=== PATIENT | female | born 2005 | race Caucasian/White ===

== ENCOUNTER 2025-08-22 10:13 | Outpatient (REF) | payer OTHER, SELFPAY | END 2025-08-22 10:14 | disposition home or self-care (01) | LOC: HO.LNP 10:13 | PROVIDERS: PCP Pediatrics; Visit Provider Nurse Practitioner Family | DX: K21.9 Gastro-esophageal reflux disease without esophagitis (principal); R09.A2 Foreign body sensation, throat; K59.00 Constipation, unspecified | CPT/HCPCS: 83013; 99202 ==

== ENCOUNTER 2025-08-22 10:13 | Outpatient (AMB) | payer OTHER, SELFPAY ==
--- NOTE | 2025-08-22 10:17 | MHC.OFFVIS ---
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 Intake Note: New pt for initial eval of chronic N+V. CC: C.O. chronic N+V for the last few years with new development within the last 2 weeks. Pt states that her sx have suddenly become worse and are now affecting her day to day life + work schedule. Pt also reports fatigue, lower abd pain, dysphagia / foreign body sensation, and irregular BMs with intermittent hematochezia. 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 Patient was sent to us by her clinical writer. Patient reports ongoing epigastric discomfort and nausea. Nausea can be exacerbated by smell, weather change like from hot to cold. Patient also reports history of fasting for long periods of time. Currently patient reports that her diet has not been great. She usually gets something from cafeteria in the morning like petra tots (fried potatoes), at home she usually does not cook for herself and eats fast food. Patient reports food getting stuck in the lower esophagus occasionally when she eats. Currently she is not taking any PPI or H2 urvashi. No family history of gastrointestinal disorders. Patient admits to have an anxiety and she knows that when she has episodes of and anxiety under stress she her symptoms exacerbate. Patient is seeing therapist for that. Patient reports no issues with bowel movements usually. However she admits that occasionally she might be constipated and sometimes she might have looser stools. Patient reports dyspepsia with dysphagia without odynophagia. Denies melena, hematochezia, unintentional weight loss or ribbon like stools. However patient reports that sometimes when she is constipated she will have blood with wiping [facility] Medical History (Updated 08/22/25 @ 10:30 by Aung Pacheco [facility]) History of chlamydia Adjustment disorder with depressed mood Social History Alcohol intake: unknown Patient Tobacco Use Status: Former Tobacco user Substance Use Type: Marijuana Review of Systems Const Denies weight gain and Denies weight loss ENT Reports no additional complaints, Reports dysphagia and Denies odynophagia Card Reports no additional complaints Resp Reports no additional complaints GI Reports abdominal pain, Denies belching, Denies melena, Denies bloating, Denies change in bowel habits, Reports constipation, Reports dysphagia, Denies excessive flatus, Reports dyspepsia, Reports heartburn, Denies diarrhea, Reports loose stools, Denies nausea, Denies odynophagia and Denies vomiting Reports no additional complaints Musc Reports no additional complaints Neuro Reports no additional complaints Psych Reports no additional complaints Endo Reports no additional complaints Physical Exam Vital Signs: BMI result Body Mass Index 23.3 Const General: healthy appearing, no acute distress and well developed Nutritional Appearance: well nourished Orientation/consciousness: patient oriented x3 Resp Effort & Inspection: normal respiratory effort, able to speak in complete sentences, no tracheal deviation and symmetric chest movement Auscultation: clear to auscultation bilaterally Cardio Rate: regular rate GI Inspection: Yes normal to inspection and No distended Palpation (GI): Soft to palpation, not firm, nontender and No hepatosplenomegaly present Auscultation: normal bowel sounds General: Yes no CVA tenderness Back/Spine/Pelvis Back: no CVA tenderness Skin General skin exam: elasticity normal, turgor normal and dry skin Neuro General: patient oriented x3 Psych Appearance: grossly normal Mental Status: mental status grossly normal Assessment & Plan Assessment & Plan (1) Postprandial epigastric pain: Code(s): R10.13 - Epigastric pain (2) GERD (gastroesophageal reflux disease): Code(s): K21.9 - Gastro-esophageal reflux disease without esophagitis Qualifiers: Esophagitis presence: esophagitis presence not specified Qualified Code(s): K21.9 - Gastro-esophageal reflux disease without esophagitis (3) Globus sensation: Code(s): R09.A2 - Foreign body sensation, throat Plan Will check for H pylori and treat empirically if positive. Will check lipase, vitamin-D, transglutaminase, thyroid study, vitamin B12 and folate. Patient will be sent for upper GI with barium swallow. Reports globus sensation in the lower part of the esophagus. Will rule out reflux, esophageal narrowing, abnormality in peristalsis. I will start him on low-dose PPI. She will start taking omeprazole daily. Patient is to call us if this will not be helpful. Discussed with patient avoiding dietary triggers. Trying to eat better to feel better. Avoid fast food meals. If patient continues to feel same after dietary changes and treatment we will send her for upper endoscopy. Follow-up in 3 months, sooner on as needed basis. Patient is agreeable to this plan and verbalizes understanding of instructions. She was given the opportunity to ask questions and all questions answered. Thank you for allowing me to participate in her care Orders: Orders H Pylori Breath Test Today K21.9 - Gastro-esophageal reflux disease without esophagitis Lipase Today R10.9 - Unspecified abdominal pain Vitamin D 25-OH (D2 and D3) Today E55.9 - Vitamin D deficiency, unspecified Transglutaminase IgA Today R10.9 - Unspecified abdominal pain TSH reflex Free T4 Today K59.00 - Constipation, unspecified Vitamin B12 and Folate Today R19.7 - Diarrhea, unspecified FL upper GI w air w Ba Swallow Today K21.9 - Gastro-esophageal reflux disease without esophagitis Medications: New omeprazole 20 mg PO DAILY 30 caps 3RF K21.9 - Gastro-esophageal reflux disease without esophagitis Coding Level of Care Code New Pt Level 4 (89493) Diagnoses Postprandial epigastric pain R10.13 Gastroesophageal reflux disease, unspecified whether esophagitis present K21.9 Esophagitis presence: esophagitis presence not specified Globus sensation R09.A2 Time Spent (min) 45 Comment 35 minutes and patient and additional 10 minutes spent reviewing her records
[2025-08-22 10:25] VITALS: BP 136/70; PULSE 90; O2SAT 99; BMI 23.3
--- OUTSIDE RECORDS SUMMARY | 2025-08-22 11:38 | XMS_ITS | Encounter Summary ---
Author Organization [facility] Address [address] [place] [address] Phone Care Team Providers Care Rag Cutting Machine Operator Name Role Phone Layne Joe MD Primary Care Provider + [phone] Reason for Visit * Reason Comments Med Change Request Encounter Details Date Type Department Care Team ([facility] Contact Info) Description 06/09/2022 Refill [facility] [place] [address] [place] [address] Dominique Agarwal DO [address] [place] [address] Other iron deficiency anemias Social History Tobacco Use Types Packs/Day Years Used Date Smoking Tobacco: Never Smokeless Tobacco: Never Alcohol Use Standard Drinks/Week Comments Never 0 (1 standard drink = 0.6 oz pur e alcohol) Hunger/Food Answer Date Recorded In the last 12 months, did y ou or your family ever eat less than you felt you should because there wasn't enough money for food? No 02/27/2021 Stable Housing Answer Date Recorded Are you worried that in the next 2 months you may not have stable housing? No 02/27/2021 Transportation Concerns Answer Date Rec orded In the last 12 months, have you or your family ever had to go without healthcare because you didn't have a way to get there? No 02/27/2021 Hazards in Home Answer Date Recorded Think about the place you li ve. Do you have problems with any of the following? Pests (mice or roaches), mold, no/not working smoke detectors, water leaks, no window guards. No 2020 Financing Utilities Answer Date Recorde d In the last 12 months, has t he [employer], gas, oil, or water [employer] threatened to shut off your services in your home? No 02/27/2021 Safety at Home Answer Date Recorded Are you or your family worried about feeling saf e in your home? No 02/27/2021 Outside Support Answer Date Recorded Do you feel that you need mo re support from other people or programs to help you care for yourself or your family? No 02/27/2021 Understanding Health Concerns Answer Da te Recorded Do you need help understandi ng your or your child's healthcare needs (diagnosis, medications, plan, etc.)? No 02/27/2021 Financing Health Concerns Answer Date R ecorded In the last 12 months, was t here a time when your child needed to see a doctor or get medications or supplies but could not because of cost? No 02/27/2021 Missing School or Work Answer Date [place] r[place] Did you or your child miss s chool or work because of a health problem that could have been avoided? No 02/27/2021 Comments No Sex and Gender Information Value Date Recorded Sex Assigned at Female 01/22/2020 10:13 AM EST Legal Sex Female 5:00 PM EDT Gender Identity Female 01/22/2020 10:13 AM EST Sexual Orientation Bisexual 02/27/2021 1 :35 PM EDT documented as of this encounter Miscellaneous Notes * Telephone Encounter - Lorraine Simmons NP - 06/09/2022 12:58 PM EDT Requesting med refill of ferrous sulfate; pt w/ hx of heavy menses on OCP; overdue for follow up labs need to avoid possible Iron overload; Labs placed and pt to follow up post lab to determine if dose needs to be lowered or reduced. * Telephone Encounter - Linda Ly LPN - 06/09/2022 11:24 AM EDT Faxed refill request / has pending PE documented in this encounter Plan of Treatment Not on file documented as of this encounter Visit Diagnoses Diagnosis Other iron deficiency anemias documented in this encounter Care Teams Rag Cutting Machine Operator Relationship Specialty Start Date End Date Layne Joe MD [address] [place] [id number] PCP - General Pediatrics 07/19/23 documented as of this encounter
--- OUTSIDE RECORDS SUMMARY | 2025-08-22 11:38 | XMS_ITS | Encounter Summary ---
Author Organization [facility] Address [address] [place] [address] Phone Care Team Providers Care Personal Counselor Name Role Phone Layne Joe MD Primary Care Provider [phone] Encounter Details Date Type Department Care Team ([facility] Contact Info) Description 08/19/2025 Results Follow-Up [facility] [place] [address] [place] [address] Pretty Diggs NP [address] [place] [address] Social History Tobacco Use Types Packs/Day Years Used Date Smoking Tobacco: Never Smokeless Tobacco: Never Alcohol Use Standard Drinks/Week Comments Never 0 (1 standard drink = 0.6 oz pur e alcohol) Hunger/Food Answer Date Recorded In the last 12 months, did y ou or your family ever eat less than you felt you should because there wasn't enough money for food? No 06/22/2024 Stable Housing Answer Date Recorded Are you worried that in the next 2 months you may not have stable housing? No 06/22/2024 Transportation Concerns Answer Date Rec orded In the last 12 months, have you or your family ever had to go without healthcare because you didn't have a way to get there? No 06/22/2024 Hazards in Home Answer Date Recorded Think about the place you li ve. Do you have problems with any of the following? Pests (mice or roaches), mold, no/not working smoke detectors, water leaks, no window guards. No 2023 Financing Utilities Answer Date Recorde d In the last 12 months, has t he electric, gas, oil, or water company threatened to shut off your services in your home? No 06/22/2024 Safety at Home Answer Date Recorded Are you or your family worried about feeling saf e in your home? No 06/22/2024 Outside Support Answer Date Recorded Do you feel that you need mo re support from other people or programs to help you care for yourself or your family? No 06/22/2024 Understanding Health Concerns Answer Da te Recorded Do you need help understandi ng your or your child's healthcare needs (diagnosis, medications, plan, etc.)? No 06/22/2024 Financing Health Concerns Answer Date R ecorded In the last 12 months, was t here a time when your child needed to see a doctor or get medications or supplies but could not because of cost? No 06/22/2024 Missing School or Work Answer Date [place] rded Did you or your child miss s chool or work because of a health problem that could have been avoided? No 06/22/2024 Child Education Answer Date Recorded Do you have concerns about y our/your child's learning or behavior in school, preschool, or daycare? No 06/22/2024 Comments No Sex and Gender Information Value Date Recorded Sex Assigned at Female 01/22/2020 10:13 AM EST Legal Sex Female 5:00 PM EDT Gender Identity Female 01/22/2020 10:13 AM EST Sexual Orientation Bisexual 02/27/2021 1: 35 PM EDT documented as of this encounter Plan of Treatment Not on file documented as of this encounter Visit Diagnoses Not on filedocumented in this encounter Care Teams Personal Counselor Relationship Specialty Start Date End Date Layne Joe MD [address] [place] [id number] PCP - General Pediatrics 07/19/23 documented as of this encounter
--- OUTSIDE RECORDS SUMMARY | 2025-08-22 11:38 | XMS_ITS | Encounter Summary ---
Author Organization [facility] Address [address] [place] [address] Phone Care Team Providers Care Single Spindle Screw Machine Operator Name Role Phone Layne Joe MD Primary Care Provider Encounter Details Date Type Department Care Team (Late st Contact Info) Description 06/06/2017 Documentation [facility] [place] Family Medicine [address] [place] [address] Family Medicine, Physician [address] [place] [address] Social History Tobacco Use Types Packs/Day Years Used Date Smoking Tobacco: Never Assessed Comments Unknown Sex and Gender Information Value Date Recorded Sex Assigned at Female 01/22/2020 10:13 AM EST Legal Sex Female 5:00 PM EDT Gender Identity Female 01/22/2020 10:13 AM EST Sexual Orientation Bisexual 02/27/2021 1: 35 PM EDT documented as of this encounter Plan of Treatment Not on file documented as of this encounter Visit Diagnoses Not on filedocumented in this encounter Care Teams Single Spindle Screw Machine Operator Relationship Specialty Start Date End Date Layne Joe MD [address] [place] [id number] PCP - General Pediatrics 07/19/23 documented as of this encounter
--- OUTSIDE RECORDS SUMMARY | 2025-08-22 11:38 | XMS_ITS | Encounter Summary ---
Author Organization [facility] Address [address] [place] [phone] Phone Care Team Providers Care Nuclear Radiation Engineer Name Role Phone Layne Joe MD Primary Care Provider Encounter Details Date Type Department Care Team ([facility] Contact Info) Description 07/07/2017 Conversion Encounter [facility] [address] [place] [address] Social History Tobacco Use Types Packs/Day Years [...] on filedocumented in this encounter Care Teams Nuclear Radiation Engineer Relationship Specialty Start Date End Date Layne Joe MD [address] [place] [address] PCP - General Pediatrics 07/19/23 documented as of this encounter
--- OUTSIDE RECORDS SUMMARY | 2025-08-22 11:38 | XMS_ITS | Encounter Summary ---
Author Organization [facility] Address [address] [place] [address] Phone Care Team Providers Care Gymnastic Coach Name Role Phone Layne Joe MD Primary Care Provider + [phone] Reason for Visit * Reason Comments Med Refill Encounter Details Date Type Department Care Team ([facility] Contact Info) Description 05/26/2022 Refill [facility] [place] [address] [place] [address] Yvonne Neff MD [address] [place] [address] Other iron deficiency anemias Social History Tobacco [...] encounter Miscellaneous Notes * Telephone Encounter - Nubia Ayala LPN - 05/26/2022 9:13 AM EDT PC PCP was [facility]: Pharm requesting refill ferrous sulfate. Pt due for PE. EH documented in this encounter Plan of Treatment Not on file documented as of this encounter Visit Diagnoses Diagnosis Other iron deficiency anemias documented in this encounter Care Teams Gymnastic Coach Relationship Specialty Start Date End Date Layne Joe MD [address] [place] [phone] PCP - General Pediatrics 07/19/23 documented as of this encounter
--- OUTSIDE RECORDS SUMMARY | 2025-08-22 11:38 | XMS_ITS | Encounter Summary ---
Author Organization [facility] Address [address] [place] [address] Phone Care Team Providers Care Tanning Consultant Name Role Phone Layne Joe MD Primary Care Provider Encounter Details Date Type Department Care Team (Late st Contact Info) Description 06/03/2017 Documentation [facility] [place] [address] [place] [address] Family Medicine, Physician [address] [place] [address] Social History Tobacco Use Types Packs/Day Years [...] on filedocumented in this encounter Care Teams Tanning Consultant Relationship Specialty Start Date End Date Layne Joe MD [address] [place] [phone] PCP - General Pediatrics 07/19/23 documented as of this encounter
--- OUTSIDE RECORDS SUMMARY | 2025-08-22 11:38 | XMS_ITS | Encounter Summary ---
Author Organization [facility] Address [address] [place] [phone] Phone Care Team Providers Care Train Operations Manager Name Role Phone Layne Joe MD Primary Care Provider Encounter Details Date Type Department Care Team (Late st Contact Info) Description 04/09/2018 Conversion [facility]counter [facility] [address] [address] Kain Jennings MD [address] [place] [address] Social History Tobacco Use Types Packs/Day Years [...] on filedocumented in this encounter Care Teams Train Operations Manager Relationship Specialty Start Date End Date Layne Joe MD [address] [place] [phone] PCP - General Pediatrics 07/19/23 documented as of this encounter
--- OUTSIDE RECORDS SUMMARY | 2025-08-22 11:38 | XMS_ITS | Encounter Summary ---
Author Organization [facility] Address [address] [place] [address] Phone Care Team Providers Care Study Specialist Name Role Phone Layne Joe MD Primary Care Provider Encounter Details Date Type Department Care Team (Late st Contact Info) Description 05/31/2017 Documentation [facility] [place] [address] [place] [address] Family Medicine, Physician [address] [place] [address] Social History Tobacco Use Types Packs/Day Years [...] on filedocumented in this encounter Care Teams Study Specialist Relationship Specialty Start Date End Date Layne Joe MD [address] [place] [phone] PCP - General Pediatrics 07/19/23 documented as of this encounter
--- OUTSIDE RECORDS SUMMARY | 2025-08-22 11:38 | XMS_ITS | Encounter Summary ---
Author Organization [facility] Address [address] [place] [address] Phone Care Team Providers Care Sales Representative Printing Supplies Name Role Phone Layne Joe MD Primary Care Provider [phone] Reason for Visit * Reason Onset Date Comments Letter 08/20/2025 Encounter Details Date Type Department Care Team ([facility] Contact Info) Description 08/20/2025 Telephone [facility] [place] [address] [place] [address] Layne Joe MD [address] [place] [address] Letter Social History Tobacco Use Types Packs/Day Years [...] encounter Miscellaneous Notes * Telephone Encounter - Leanne Hallman - 08/20/2025 11:04 AM EDT 20yr Birthday Letter sent documented in this encounter Plan of Treatment Not on file documented as of this encounter Visit Diagnoses Not on filedocumented in this encounter Care Teams Sales Representative Printing Supplies Relationship Specialty Start Date End Date Layne Joe MD [address] [place] [phone] PCP - General Pediatrics 07/19/23 documented as of this encounter
--- OUTSIDE RECORDS SUMMARY | 2025-08-22 11:38 | XMS_ITS | Clinical Summary ---
Author Organization [facility] Address [address] [place] [phone] Phone Care Team Providers Care Media Account Executive Name Role Phone Layne Joe MD Primary Care Provider Allergies Active Allergy Reactions Criticality Noted Date Comments Penicillin V Medications IUD'S IU by Intrauterine route. Active fluticasone 50 MCG/ACT nasal sprayIndications:M iddle ear effusion, left Administer 1 spray into each nostril daily. 1 mL 5 03/20/20 25 026 Active Additional Information Patient not taking.Reported on 08/15/2025 cetirizine (ZyrTEC Allergy) 10 MG tabletIndications: Middle ear effusion, left Take 1 tablet (10 mg total) by mouth daily. 90 tablet 03/20/20 25 Active Additional Information Patient not taking.Reported on 08/15/2025 ondansetron ODT 8 MG disintegrating tabletIndications: Nausea and vomiting, unspecified vomiting type Take 1 tablet (8 mg total) by mouth every 8 (eight) hours as needed for nausea or vomiting for up to 3 days. 10 tablet 08/15/20 025 Active Problems Problem Noted Date Diagnosed Date Nicotine use 06/22/2024 Overview (06/22/2024): Daily vape use. Assessment & Plan (06/22/2024 11:20 AM EDT): Discussed risks, pt is aware of health risks. Created shared plan for cessation today. Discussed leveraging community resources. History of chlamydia 02/13/2024 Overview (02/13/2024): Positive urine test 10/2023 - treated with abx Assessment & Plan (06/22/2024 11:29 AM EDT): Negative KAIDEN 01/2024, plan to repeat today. Assessment & Plan (02/13/2024 3:10 PM EDT): Recheck today Will call with results no matter what the result Marijuana use 10/30/2021 Overview (12/10/2021): Less than once a week for recreation Assessment & Plan (06/22/2024 11:18 AM EDT): <1x/week, recreationally. Discussed risks, shared plan for cessation. Adjustment disorder with depressed mood 12/25/19 Overview (06/22/2024): Positive depression screen 12/25/18. Is in therapy There is a family history of depression and of intolerance to SSRI - In therapy at [facility] with Anjana starting 2018. -Stopped therapy 05/2024. Stable, well controlled with coping skills. Assessment & Plan (06/22/2024 11:03 AM EDT): 06/2024: Recently stopped seeing her therapist d/t therapist left practice. Feels she is in a good place, and anxiety is well controlled with coping skills. Assessment & Plan (02/27/2021 2:38 PM EDT): Has been in therapy with Anjana at [facility] and finding it helpful. Feels her mood has improved a lot over the past year. Assessment & Plan (01/22/2020 12:15 PM EST): Still in therapy with Anjana at [facility] and finding it helpful. Assessment & Plan (12/25/2018 12:51 PM EST): Discussed with pt and dad. Dad is quite aware of concerns and talking with therapist. Amarilis contracted for safety. Will follow up as needed. Resolved Problems Problem Noted Date Diagnosed Date Resolved Date Exposure to chlamydia 10/26/20232023 Assessment & Plan (10/26/2023 10:42 AM EST): Education done - will empirically start doxycycline while awaiting test results Given sexual history will also screen for hepatitis C and HIV with Amarilis's consent Discussed where partners with no insurance can access care as well Acute Marjorie Boland virus (EBV) infection 03/24/2022 06/21/2022 Overview (06/21/2022): With silent hepatitis- ALT 268 Symptoms resolved 06/2022 Heavy menses 12/10/2021 06/22/2024 Overview (06/21/2022): On OCPs for control 2021 Assessment & Plan (03/18/2022 8:29 AM EDT): Well controlled on OCP. Pt with no concerns or SE To continue on OCP Assessment & Plan (12/10/2021 5:18 PM EST): control hormone pills discussed and ordered There is no family history of blood clots. Side effects reviewed - mild nausea, breast tenderness, spotting. If any of these or other symptoms are severe, please call our office. If you have severe pain in you head, chest, abdomen or calf, go to the ER. This is signs and symptoms of a blood clot which is rare but can happen in people taking control pills. Start control pills on the Tuesday after your next period starts. Take one pill every day about the same time. If you miss a pill take it as soon as you remember. Take no more than 2 pills on the same day. The Pill is not effective in preventing during the first month you are on it. If sexually active, always use a condom to prevent sexually transmitted infection. Schedule a follow-up appointment in 3 months. Iron deficiency anemia secon luis fernando to inadequate dietary iron intake 11/02/2021 Assessment & Plan (03/18/2022 8:30 AM EDT): Labs done dec 2021 that were normal Assessment & Plan (12/10/2021 5:19 PM EST): No more fainting or feeling dizzy since starting on iron supplement. 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 You fainted once while eating. Cerebral cyst 03/15/2013 06/21/2022 Overview (02/27/2021): Incidental finding on scan done after skull fx when she was 5 yo[address] Cunningham and he reasurred Overweight, pediatric, BMI 8 5.0-94.9 percentile for age 0403/15/2013 12/25/2018 Assessment & Plan (09/22/2017 2:52 PM EDT): We discussed your weight today. Be very kind and gentle with yourself about your body and remember to appreciate all it does well. Extreme diets and rapid weight loss usually fails Making tag writer healthy changes in how you eat has the best chance for success. Drink more water, less soda, juice and milk. Eat more high fiber and plant based foods - fruits, veges, nuts, seeds, whole grains. Eat less processed foods and eat out less. Encounters Date Type Department Care Team Description 08/20/2025 Telephone [facility] [address] [place] [address] Layne Joe MD Letter 08/19/2025 Results Follow-Up [facility] [address] [place] [address] Pretty Diggs NP 08/15/2025 2:15 PM EDT Office Visit [facility] - [address] [address] Pretty Diggs, VANIA Nausea and vomiting, unspecified vomiting type (Primary Dx) from Last 3 Months Immunizations Immunization Administration Dates Next Due COVID-19 Pfizer, monovalent, 12+ years 2 COVID-19 Pfizer, seasonal, 12+ years 02/13/2024 DTaP 10/20/2010, 0,01/02/2007,01/02 DTaP / Hep B / IPV 03/31/2006, 6,01/11/2006,01/11,2005,2005 HPV Vaccine 9 Valent 12/25/2018,09/22/2017 Hep A, ped/adol 09/06/2016,07/01/2015 Hep B, ped/adol 2005,2005 Hib (HbOC) 01/02/2007, 6,01/11/2006,11/16 Hib (PRP-T) 01/02/2007, 6,01/11/2006,11/16 IPV 10/20/2010,10/20/2010 Influenza, injectable, quadrivalent 09/16/2008 Influenza, injectable, quadr ivalent, preservative free 02/13/2024,10/28/2021,10/18/2020,10/18 Influenza, injectable, trivalent 09/16/2008 MMR 10/13/2009,10/13/2009 MMRV 01/02/2007,01/02/2007 Meningococcal Conj (Menactra) MCV4P 06/21/2022,1 11/22/2016 Pneumococcal Conjugate 01/02/2007,2006,03/31/2006,03/31,01/11/2006,01/11/2006,2005 ,2005 Tdap 09/22/2017 Varicella 10/13/2009,10/13/2009 Family History Medical History Relation Name Comments Alopecia Brother 1 Berny Ghosh Depression Brother 1 Berny Ghosh Depression Brother 2 Chilo Ghosh Depression Father Damian Ghosh Bipolar disorder Mother Christy Ghosh Depression Mother Christy Ghosh Lupus Mother Christy Ghosh Relation Name Status Comments Brother 1 Berny Ghosh Alive Brother: Aliv e and well Brother 2 Chilo Ghosh Alive Father Damian Ghosh Alive Father: Alive and well/hiatal hernia, hypoglycemia age: 35 Father's Sister Alive healthy Maternal Grandfather Alive healthy Maternal Grandmother Alive stomach issue Mother Christy Ghosh Alive Mother: Syste kay lupus erythematosus, Migraines, ADD/ADHD/stomach thing, bipolar, autonomic dysfunction Other Siblings: asthm a in sibs, sister-alopecia areata Paternal Grandfather Alive healthy Paternal Grandmother Alive hiatal hernia Sister Sister: Develop mental dislocation of hip, ADD/ADHD, Asthma, Strabismus Social History Tobacco Use Types Packs/Day Years Used Date Smoking Tobacco: Never Smokeless Tobacco: Never Tobacco Cessation:Counseling Given: Yes Alcohol Use Standard Drinks/Week Comments Never 0 [...] Orientation Bisexual 02/27/2021 1: 35 PM EDT Last Filed Vital Signs Vital Sign Reading Time Taken Comments Blood Pressure 113/73 06/22/2024 10:26 AM EDT Pulse 81 06/22/2024 10:26 AM EDT Temperature 36.1 C (96.9 F) 08/15/2025 1:58 PM EDT Respiratory Rate - - Oxygen Saturation 98% 10/10/2015 12: 00 AM EST Inhaled Oxygen Concentration - - Weight 60.7 kg (133 lb 12.8 oz) 08/15/2025 1:58 PM EDT Height 165.1 cm (5' 5 ) 06/22/2024 10:2 6 AM EDT Body Mass Index 22.27 06/22/2024 10:26 AM EDT Plan of Treatment Health Maintenance Due Date Last Done Comments Men B Vaccine (1 of 2 - Standard) 2021 Chlamydia and Gonorrhea Screening 06/06/2025 03/08/2025, 06/22/2024, 02/13/2024, Additional history exists Influenza Vaccines (#1) 2025 02/13/20, 10/28/2021, 10/18/2020, Additional history exists COVID-19 Vaccine (5 - 2024-2 6 season) 2025 02/13/2024, 12/09/2021, 04/25/2021, Additional history exists HIV Screening 03/08/2026 03/08/2025, 10/26/2023 Syphilis Screening (consider for higher risk patients) 03/08/2026 03/08/2025 DTaP,Tdap,and Td Vaccines (6 - Td or Tdap) 09/22/2027 09/22/2017, 10/20/2010, 10/20/2010, Additional history exists Hepatitis B Vaccines Completed 03/31/2006, 03/31/2006, 01/11/2006, Additional history exists HIB Vaccines Completed 01/02/2007, 12/22, 03/31/2006, Additional history exists Pneumococcal Vaccine Completed 01/02/2007, 01/02/2007, 03/31/2006, Additional history exists MMR Vaccines Completed 10/13/2009, 09/22, 01/02/2007, Additional history exists Varicella Vaccines Completed 10/13/2009, 12/13/2008, 01/02/2007, Additional history exists IPV Vaccines Completed 10/20/2010, 09/23, 03/31/2006, Additional history exists Hepatitis A Vaccines Completed 09/06/2016, 07/01/20 15 HPV Vaccines Completed 12/25/2018, 09/22/2017 Meningococcal Vaccine Completed 06/21/2022, 017 Hepatitis C Screening Completed 03/08/2025, 023 Procedures * Due to [place] state law, this organization might not be sharing sensitive test results. Procedure Name Priority Date/Time Associated Diagnosis Comments TSH Routine 08/15/2025 2:57 PM EDT Nausea and vomiting, unspecified vomiting type TISSUE TRANSGLUTAMINASE, IGA Routine 08/15/2025 2:57 PM EDT Nausea and vomiting, unspecified vomiting type T4, FREE Routine 08/15/2025 2:57 PM EDT Nausea and vomiting, unspecified vomiting type IGA Routine 08/15/2025 2:57 PM EDT Nausea and vomiting, unspecified vomiting type SEDIMENTATION RATE, AUTOMATED Routine 08/15/2025 2:57 PM EDT Nausea and vomiting, unspecified vomiting type COMPREHENSIVE METABOLIC PANEL Routine 08/15/2025 2:57 PM EDT Nausea and vomiting, unspecified vomiting type CBC DIFFERENTIAL Routine 08/15/2025 2:57 PM EDT Nausea and vomiting, unspecified vomiting type POCT , URINE Routine 08/15/2025 2:31 PM EDT Nausea and vomiting, unspecified vomiting type CHLAMYDIA AND GONORRHEA, AMPLIFIED Routine 03/08/2025 10:38 AM EDT Encounter for screening examination for chlamydial infection RPR Routine 03/08/2025 9:51 AM EDT Screening examination for STI HEPATITIS C ANTIBODY WITH REFLEX TO HCV, RNA, QUANT, RT PCR Routine 03/08/2025 9:51 AM EDT Screening examination for STI from Last 3 Months or Most Recently Relevant to Health Maintenance Results * Due to [place] state law, this organization might not be sharing sensitive test results. * Tissue transglutaminase, IgA (08/15/2025 2:57 PM EDT) tTG IgA <2 0 - 3 U/mL [facility] Comment: Negative 0 - 3 Weak Positive 4 - 10 Positive >10 Tissue Transglutaminase (tTG) has been identified as the endomysial antigen. Studies have demonstr- ated that endomysial IgA antibodies have over 99% specificity for gluten sensitive enteropathy. Blood 08/15/2025 2:57 PM EDT 08/15/2025 Narrative [facility] - 08/16/2025 9:05 PM EDT Performed at: [facility] [id number] Automation Clerk: Emma Cummins MD, Phone: [phone] Pretty Diggs NP LAB BLOOD ORDERABLES Final Resul t Performing Organization Address City/[facility]/ZIP Co de Phone Number [facility] [address] [place] [address] * Sedimentation rate (08/15/2025 2:57 PM EDT) [facility] ESR (Erythrocyte Sedimentation Rate), Automated 4 0 - 32 mm/hr [facility] Blood 08/15/2025 2:57 PM EDT 08/15/2025 Narrative [facility] - 08/16/2025 7:05 AM EDT Performed at: 01 - [facility] [id number] Automation Clerk: Emma Cummins MD, Phone: [phone] [facility]LOOD ORDERABLES Final Resul t Performing Organization Address [facility] Co de Phone Number [facility] [address] [place] [address] * (ABNORMAL) CBC and Differential (08/15/2025 2:57 PM EDT) [facility] WBC 6.9 3.4 - 10.8 x10E3/uL [facility] RBC 4.15 3.77 - 5.28 x10E6/uL [facility] HGB 13.9 11.1 - 15.9 g/dL [facility] HCT 39.7 34.0 - 46.6 % [facility] MCV 96 79 - 97 fL [facility] MCH 33.5(H) 26.6 - 33.0 pg [facility] MCHC 35.0 31.5 - 35.7 g/dL [facility] RDW 12.1 11.7 - 15.4 % [facility] Platelets in Blood, Automated Count 283 150 - 450 x10E3/uL [facility] Neutrophils % 63 Not Estab. % [facility] Lymphocytes % 28 Not Estab. % [facility] Monocytes % 7 Not Estab. % [facility] Eosinophils % 1 Not Estab. % [facility] Basophil % 1 Not Estab. % [facility] Neutrophils Absolute 4.4 1.4 - 7.0 x10E3/uL [facility] Lymphocytes Absolute 1.9 0.7 - 3.1 x10E3/uL [facility] Monocytes Absolute 0.5 0.1 - 0.9 x10E3/uL [facility] Eosinophils Absolute 0.1 0.0 - 0.4 x10E3/uL [facility] Basophil Absolute 0.0 0.0 - 0.2 x10E3/uL [facility] Immature Granulocytes % 0 Not Estab. % [facility] Immature Granulocytes Absolute 0.0 0.0 - 0.1 x10E3/uL [facility] Blood 08/15/2025 2:57 PM EDT 08/15/2025 Narrative [facility] - 08/16/2025 6:05 AM EDT Performed at: [facility] [id number] Automation Clerk: Emma Cummins MD, Phone: [phone] Pretty Diggs NP LAB BLOOD ORDERABLES Final Resul t Performing Organization Address [facility] de Phone Number [facility] [address] [place] [address] * TSH (08/15/2025 2:57 PM EDT) Pathologist [facility] TSH (Thyroid Stimulating Hormone) 1.440 0.450 - 4.500 uIU/mL [facility] Blood 08/15/2025 2:57 PM EDT 08/15/2025 Narrative [facility] - 08/16/2025 6:05 PM EDT Performed at: [facility] [address] [id number] Automation Clerk: Emma Cummins MD, Phone: [phone] Pretty Diggs NP LAB BLOOD ORDERABLES Final Resul t Performing Organization Address City/[facility] Co de Phone Number [facility] [address] [place] [address] * T4, free (08/15/2025 2:57 PM EDT) Pathologist [facility] Free T4 1.42 0.93 - 1.60 ng/dL [facility] Blood 08/15/2025 2:57 PM EDT 08/15/2025 Narrative [facility] - 08/16/2025 6:05 PM EDT Performed at: 01 - [address] [id number] Automation Clerk: Emma Cummins MD, Phone: [phone] [facility] LAB BLOOD ORDERABLES Final Resul t Performing Organization Address [facility] de Phone Number [facility] [address] [place] [address] * IgA (08/15/2025 2:57 PM EDT) [facility] IgA 100 87 - 352 mg/dL [facility] Blood 08/15/2025 2:57 PM EDT 08/15/2025 Narrative [facility] - 08/16/2025 5:05 PM EDT Performed at: 01 - [address] [id number] Automation Clerk: Emma Cummins MD, Phone: [phone] [facility] LAB BLOOD ORDERABLES Final Resul t Performing Organization Address [facility] de Phone Number [facility] [address] [place] [address] * (ABNORMAL) Comprehensive Metabolic Panel (08/15/2025 2:57 PM EDT) [facility] Glucose 87 70 - 99 mg/dL [facility] Urea Nitrogen 8 6 - 20 mg/dL [facility] Creatinine 0.87 0.57 - 1.00 mg/dL [facility] BUN/Creatinine Ratio 9 9 - 23 [facility] Sodium 142 134 - 144 mmol/L [facility] Potassium 3.9 3.5 - 5.2 mmol/L [facility] Chloride 104 96 - 106 mmol/L [facility] Carbon Dioxide, Total 21 20 - 29 mmol/L [facility] Calcium 10.4(H) 8.7 - 10.2 mg/dL [facility] Comment:Verified by repeat analysis Protein, Total 7.6 6.0 - 8.5 g/dL [facility] Albumin 5.2(H) 4.0 - 5.0 g/dL [facility] Globulin Total 2.4 1.5 - 4.5 g/dL [facility] Bilirubin, Total 0.3 0.0 - 1.2 mg/dL [facility] Alkaline Phosphatase 52 42 - 106 IU/L [facility] Comment:Please note refere nce interval change AST (SGOT) 19 0 - 40 IU/L [facility] ALT (SGPT) 8 0 - 32 IU/L [facility] Blood 08/15/2025 2:57 PM EDT 08/15/2025 Narrative [facility] - 08/16/2025 6:05 PM EDT Performed at: [address] [id number] Automation Clerk: Emma Cummins MD, Phone: [phone] Pretty Diggs NP LAB BLOOD ORDERABLES Final Resul t Performing Organization Address [facility] Co de Phone Number [facility] [address] [place] [address] * POCT , urine (08/15/2025 2:31 PM EDT) Preg Test, Urine, POC Negative Negative, Presumptive negative [facility] Urine 08/15/2025 2:31 PM EDT Pretty Diggs NP POINT OF CARE TEST ORDERABLES Fi nal Result Performing Organization Address [facility] de Phone Number [facility] * Chlamydia and Gonorrhoea, Amplified (03/08/2025 10:38 AM EDT) C trach OPAL Negative Negative [facility] N gonorrhoeae OPAL Negative Negative [facility] Urine (Urine) 03/08/2025 10: 38 AM EDT 03/08/2025 Comment:UR Narrative [facility] - 03/11/2025 6:05 PM EDT Performed at: [facility] [address], [place], [place] [id number] Automation Clerk: Jimenez Raygoza MD, Phone: [phone] us Jacque De Leon MD LAB MICROBIOLOGY - GENERAL OR DERABLES Final Result Performing Organization Address City/[facility]/ZIP Co de Phone Number [facility] [address] [place] [id number] * Hepatitis C Antibody w/ reflex to HCV RNA Quant RT PCR (03/08/2025 9:51 AM EDT) Pathologist [facility] HCV Ab Non Reactive Non Reactive [facility] Blood 03/08/2025 9:51 AM EDT 03/08/2025 Narrative [facility] - 03/09/2025 10:05 AM EDT Performed at: - [facility] [address], [place] [id number] Automation Clerk: Jimenez Raygoza MD, Phone: [phone] Jacque De Leon MD LAB BLOOD ORDERABLES Final Re sult Performing Organization Address [facility] [place] [address] * RPR (03/08/2025 9:51 AM EDT) Pathologist [facility] RPR, QUANTITATIVE Non Reactive NonRea<1: 1 titer [facility] Comment: Please Note: This test does not meet current guidelines for screening and diagnosis of syphilis. This test is intended for following treatment response in patients being treated for syphilis infection. To screen for syphilis infection, a reflex cascade that includes both RPR and a treponema-specific assay should be utilized, such as Treponema pallidum (Syphilis) Screening [place] (113941) or Rapid Plasma Reagin (RPR) Test With Reflex to Quantitative RPR and Confirmatory Treponema pallidum Antibodies (086302). Blood (Blood, Venous) 03/08/2025 9:51 AM EDT 03/08/2025 Narrative [facility] - 03/09/2025 9:05 AM EDT Performed at: - [facility] [address], [address], [place], [place] [id number] Automation Clerk: Jimenez Raygoza MD, Phone: [phone] us Jacque De Leon MD LAB BLOOD ORDERABLES Final Re sult Performing Organization Address [facility]/ZIP Co de Phone Number [facility] [address] [place] [address] from Last 3 Months or Most Recently Relevant to Health Maintenance Insurance [employer] [place] PAO [id number] Care Teams Media Account Executive Relationship Specialty Start Date End Date Layne Joe MD [address] [place] [phone] PCP - General Pediatrics 07/19/23
== END 2025-08-22 11:01 | disposition home or self-care (01) ==
LOC: HO.HGI 10:13
PROVIDERS: PCP Pediatrics; Visit Provider Nurse Practitioner Family
DX: R10.13 Epigastric pain (principal); K21.9 Gastro-esophageal reflux disease without esophagitis; R09.A2 Foreign body sensation, throat
CPT/HCPCS: 99204

== ENCOUNTER 2025-09-24 10:53 | Outpatient (AMB) | payer OTHER, SELFPAY ==
--- NOTE | 2025-09-24 10:27 | A.OFFPC_ITS ---
Vital Signs 09/24/25 10:55 Height 5 ft 5 in Weight 135 lb 4 oz BMI 22.5 BP 104/70 Blood Pressure Location Lt brachial Position Sitting Respiration 16 Pulse 64 Pulse Source Pulse Oximeter Temp 96.9 F Temp Source Temporal Artery Scan Pulse Oximetry (%) 98 Oxygen Delivery Method Room Air Intake Visit Reasons: new patient visit, former [facility] Required: No Accompanied by: Self / Same As Patient Allergies Penicillins Allergy (Unknown, Verified 09/24/25 10:27) Unknown Medication List - Last Reconciled 09/24/25 by Aleksandra Mckeon MD chlorhexidine gluconate 0.12% 15 mL PO DAILY omeprazole 20 mg PO DAILY ondansetron 4 mg PO Q8H PRN sertraline 25 mg PO DAILY Tobacco use date assessed: 09/24/25 Dental Screening Dental Screen Date: 09/24/25 Did you have a dental visit in the last 12 months?: Yes Did you have a dental problem in the last 6 months where you did not have access to dental care?: No Was dental information given to patient?: Patient has dentist HPI HPI Comments History of Present Illness Details The patient is a 20-year-old female presenting to [facility] care. Previous PCP at [facility]. Chronic nausea: The patient reports chronic nausea for over five years, with frequent vomiting episodes, worsened recently. Negative H. pylori test; normal blood work. An upper GI study is pending. Potential anxiety as a contributing factor. Anxiety: Reports significant anxiety with symptoms of severe episodes and paranoia. Requests further assessment for potential misdiagnosis of her mental health condition by her mental health provider. Depression- has mental health provider, on sertraline, had a therapist but she left so is awaiting assignment to a new therapist Vitamin D deficiency- has been on supplements in the past Anemia- has taken iron supplements in the past. Care Team BHN- for therapy and med provider Health Maintenance OBGYN- [facility], has IUD in place. 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 pylori breath test Tests and Diagnostics: - Scheduled upper GI swallow study on the Review of Systems - Card: no chest pain, no sob - Pulm: no shortness of breath - Gastrointestinal: Reports chronic naus ea and frequent vomiting, denies diarrhea - Psychiatric: Reports significant anxie ty, paranoia Physical Exam - Gen: NAD - Respiratory- Lungs clear to auscultati on, no wheezing - Cardiovascular- Soft heart murmur note d - Abdominal- Abdomen soft on palpation, non tender, +BS - Peripheral edema- trace edema bilater ally - Neuro: AOX3 Assessment and Plan 1. Chronic nausea - Follow up with GI, check electrolytes; reduce energy drink use. 2. Anxiety - Continue sertraline; neuropsych evalua tion; Discussion Notes During the visit, we discussed the patient's ongoing symptoms of chronic nausea, exacerbated by factors like temperature, smells. An upper GI swallow is scheduled to examine any structural causes. The patient's anxiety is recognized as a significant factor, warranting continuation of sertraline and further psychological evaluation to differentiate potential overlapping diagnoses. Dance and movement activities were encouraged for anxiety management since she enjoys these. Patient Instructions - Limit energy drink intake to reduce na usea and potential heart risks. - Follow up with the scheduled GI test a nd lab work. - Keep taking sertraline for anxiety as prescribed. - Engage in dance or movement activities to help manage stress. [facility] Medical History (Updated 09/24/25 @ 12:14 by Aleksandra Mckeon MD) Generalized anxiety disorder Depression, major, recurrent IUD (intrauterine device) in place Routine medical exam Vitamin D deficiency Iron deficiency anemia Chronic nausea History of chlamydia Adjustment disorder with depressed mood Surgical History (Updated 09/24/25 @ 11:17 by Aleksandra Mckeon MD) History of dental surgery Family History (Updated 09/24/25 @ 11:19 by Aleksandra Mckeon MD) Mother Lupus Bipolar disorder Brother Alopecia Social History (Updated 08/22/25 @ 10:30 by MERVAT Sen) Housing: Apartment Alcohol intake: unknown Patient Tobacco Use Status: Never used Tobacco e-Cigarette/Vaping Use: Currently Using Substance Use Type: Marijuana service: No Current occupational status: employed Current occupation: [employer] Questionnaire PHQ-9 Over the last 2 weeks, how often have you been bothered by any of the following problems? 1. Little interest or pleasure in doing things: nearly every day 2. Feeling down, depressed, or hopeless: several days 3. Trouble falling or staying asleep, or sleeping too much: more than half the days 4. Feeling tired or having little energy: nearly every day 5. Poor appetite or overeating: nearly every day 6. Feeling bad about yourself - or that you are a failure or have let yourself or your family down: nearly every day 7. Trouble concentrating on things, such as reading the newspaper or watching television: several days 8. Moving or speaking so slowly that other people could have noticed. Or the opposite - being so fidgety or restless that you have been moving around a lot more than usual: not at all 9. Thoughts that you would be better off or of hurting yourself in some way: not at all Total score: 16 Depression Screening Interpretation: Positive Depression Screening Done: Yes 39934 - PHQ-9 Billing: Yes Source: Developed by Drs. Rui London, Sunshine Holm, Momo Pérez and colleagues, with an educational eva from [employer]. Thrive Questionnaire Date Thrive assessed: 09/24/25 I am a: Patient What is your living situation today?: I have a steady place to live Within the past 12 months, did the food you bought not last and you didn't have the money to get more?: Never true Within the past 12 months, did you worry whether your food would run out before you got money to buy more?: Never true Do you have trouble paying for medicines?: No Do you have trouble getting transportation to medical appointments?: No Do you have trouble paying your heating and electricity bill?: No Do you have trouble taking care of your child, family member or friend?: No Do you have trouble with day-to-day activities such as bathing, preparing meals, shopping, managing finances, etc.?: No Are you currently unemployed and looking for a job?: No Are you interested in more education?: No Please select the resources that you would like help with: None THRIVE Score: 0 AUDIT C Alcohol Use Questionnaire (AUDIT-C) 1. How often do you have a drink containing alcohol?: Never 3. How often do you have six or more drinks on one occasion?: Never Total Score: 0 WENDY-7 AMB Questionnaire WENDY-7 Date WENDY - 7 assessed: 09/24/25 Feeling nervous, anxious, or on edge: 3 = Nearly every day Not being able to stop or control worryin = Nearly every day Worrying too much about different things: 3 = Nearly every day Trouble relaxin = Nearly every day Being so restless that it is hard to sit still: 1 = Several days Becoming easily annoyed or irritable: 2 = More than half the days Feeling afraid as if something awful might happen: 3 = Nearly every day Total WENDY-7 score (0-4 normal; 5-9 mild; 10-14 moderate; 15-21 severe): 18 Source: Developed by Drs. Rui London, Sunshine Holm, Momo Pérez and colleagues, with an educational eva from [employer]. Physical exam (Primary Care) Vital Signs: Last Vital Signs Temp 96.9 F 09/24/25 10:55 Pulse 64 09/24/25 10:55 Resp 16 09/24/25 10:55 BP 104/70 09/24/25 10:55 Pulse Ox 98 09/24/25 10:55 Oxygen Delivery Method Room Air 09/24/25 10:55 BMI result Body Mass Index 22.5 Tobacco/Smoking Status: Tobacco use Status Tobacco use date assessed 09/24/25 09/24/25 10:27 Patient Tobacco Use Status Never used Tobacco 09/24/25 11:00 e-Cigarette/Vaping Use Currently Using 09/24/25 11:00 PHQ-9: PHQ-9 Score PHQ-9: Total score 16 09/24/25 12:09 Depression Screening Interpretation: Positive Thrive Assessment: Date of Thrive Assessment Date Thrive assessed 09/24/25 09/24/25 11:46 Coding Level of Care Code New Pt Level 4 (59889) Complex EM visit Add On G2211 Diagnoses Chronic nausea R11.0 Iron deficiency anemia, unspecified iron deficiency anemia type D50.9 Iron deficiency anemia type: unspecified iron deficiency Vitamin D deficiency E55.9 Moderate episode of recurrent major depressive disorder F33.1 Active/Remission status: currently active Major depression episode severity: moderate Generalized anxiety disorder F41.1 Additional Codes PHQ-9 - 27627 - PHQ-9 Billing: Yes ([id number]) Assessment & Plan Assessment & Plan (1) Chronic nausea: Code(s): R11.0 - Nausea Category: Medical (2) Iron deficiency anemia: Code(s): D50.9 - Iron deficiency anemia, unspecified Category: Medical Qualifiers: Iron deficiency anemia type: unspecified iron deficiency Qualified Code(s): D50.9 - Iron deficiency anemia, unspecified (3) Vitamin D deficiency: Code(s): E55.9 - Vitamin D deficiency, unspecified Category: Medical (4) Depression, major, recurrent: Code(s): F33.9 - Major depressive disorder, recurrent, unspecified Category: Medical Qualifiers: Active/Remission status: currently active Major depression episode severity: moderate Qualified Code(s): F33.1 - Major depressive disorder, recurrent, moderate (5) Generalized anxiety disorder: Code(s): F41.1 - Generalized anxiety disorder Category: Medical Plan - Follow up with GI. - Minimize energy drink consumption. - Proceed with labs for electrolyte checks. - Maintain sertraline treatment and initiate neuropsych evaluation. Orders: Orders Complete Blood Count Auto Diff Today D50.9 - Iron deficiency anemia, unspecified, E55.9 - Vitamin D deficiency, unspecified, R11.0 - Nausea Comprehensive Met. Panel Today D50.9 - Iron deficiency anemia, unspecified, E55.9 - Vitamin D deficiency, unspecified, R11.0 - Nausea IRON PROFILE Today D50.9 - Iron deficiency anemia, unspecified, E55.9 - Vitamin D deficiency, unspecified, R11.0 - Nausea Ferritin Today D50.9 - Iron deficiency anemia, unspecified, E55.9 - Vitamin D deficiency, unspecified, R11.0 - Nausea Vitamin B12 Today D50.9 - Iron deficiency anemia, unspecified, E55.9 - Vitamin D deficiency, unspecified, R11.0 - Nausea Vitamin D 25-OH Total Today D50.9 - Iron deficiency anemia, unspecified, E55.9 - Vitamin D deficiency, unspecified, R11.0 - Nausea TSH reflex Free T4 Today D50.9 - Iron deficiency anemia, unspecified, E55.9 - Vitamin D deficiency, unspecified, R11.0 - Nausea Lipid Panel Today D50.9 - Iron deficiency anemia, unspecified, E55.9 - Vitamin D deficiency, unspecified, R11.0 - Nausea, Z00.00 - Encounter for general adult medical examination without abnormal findings
[2025-09-24 10:55] VITALS: BP 104/70; PULSE 64; RESP 16; TEMP 36.1; O2SAT 98; BMI 22.5
--- OUTSIDE RECORDS SUMMARY | 2025-09-24 13:09 | XMS_ITS | Encounter Summary ---
Author Organization [facility] Address [address] [place] [address] Phone Care Team Providers Care Supervisor Grinding Name Role Phone Provider, Forrest GUPTA Primary Care Provider [phone] Encounter Details Date Type Department Care Team (Late st Contact Info) Description 06/03/2017 Documentation [facility] [place] [facility] [address] [place] [address] Family Medicine, Physician [address] [place], [place] [address] Social History Tobacco Use Types Packs/Day Years [...] on filedocumented in this encounter Care Teams Supervisor Grinding Relationship Specialty Start Date End Date Provider, MD Forrest [address] [place] [phone] PCP - General Pediatrics 04/21/22 07/18/23 documented as of this encounter
--- OUTSIDE RECORDS SUMMARY | 2025-09-24 13:09 | XMS_ITS | Encounter Summary ---
Author Organization [facility] Address [address] [place] [address] Phone Care Team Providers Care Hander In Name Role Phone Provider, Forrest GUPTA Primary Care Provider [phone] Encounter Details Date Type Department Care Team (Late st Contact Info) Description 05/31/2017 Documentation [facility] [place] [place] Family Medicine [address] [place] [address] Family Medicine, Physician [address] [place], [place] [id number] Social History Tobacco Use Types Packs/Day Years [...] on filedocumented in this encounter Care Teams Hander In Relationship Specialty Start Date End Date Provider, MD Forrest [address] [place] [phone] PCP - General Pediatrics 04/21/22 07/18/23 documented as of this encounter
--- OUTSIDE RECORDS SUMMARY | 2025-09-24 13:09 | XMS_ITS | Encounter Summary ---
Author Organization [facility] Address [address] [place] [address] Phone Care Team Providers Care Machine Molder Name Role Phone Provider, Forrest GUPTA Primary Care Provider [phone] Encounter Details Date Type Department Care Team (Late st Contact Info) Description 06/06/2017 Documentation [facility] [place] Family Medicine [address] [place] [address] Family Medicine, Physician [address] [place], [place] [id number] Social History Tobacco Use Types Packs/Day Years [...] on filedocumented in this encounter Care Teams Machine Molder Relationship Specialty Start Date End Date Provider, MD Forrest [address] [place] [phone] PCP - General Pediatrics 04/21/22 07/18/23 documented as of this encounter
--- OUTSIDE RECORDS SUMMARY | 2025-09-24 13:09 | XMS_ITS | Encounter Summary ---
Author Organization [facility] Address [address] [place] [address] Phone Care Team Providers Care Wire Spring Relay Adjuster Name Role Phone Unavailable Primary Care Provider Unavailabl e Encounter Details Date Type Department Care Team (Late st Contact Info) Description 08/19/2025 Results [place]Up [facility] [place] [address] [place] [address] Pretty Diggs NP [address] [place] [address] Social History Tobacco Use Types Packs/Day Years [...]
--- OUTSIDE RECORDS SUMMARY | 2025-09-24 13:09 | XMS_ITS | Encounter Summary ---
Author Organization [facility] Address [address] [place] [address] Phone Care Team Providers Care Nurse Assistant Name Role Phone Provider, Forrest GPUTA Primary Care Provider [phone] Encounter Details Date Type Department Care Team (Late st Contact Info) Description 04/09/2018 [facility]version [facility]counter [facility] [address] [address] Kain Jennings MD [address] [place] [id number] Social History Tobacco Use Types Packs/Day Years [...] on filedocumented in this encounter Care Teams Nurse Assistant Relationship Specialty Start Date End Date Provider, MD Forrest [address] [place] [phone] PCP - General Pediatrics 04/21/22 07/18/23 documented as of this encounter
--- OUTSIDE RECORDS SUMMARY | 2025-09-24 13:09 | XMS_ITS | Encounter Summary ---
Author Organization [facility] Address [address] [place] [address] Phone Care Team Providers Care Motor Vehicle Inspector Name Role Phone Provider, Forrest GUPTA Primary Care Provider [phone] Reason for Visit * Reason Comments Med Change Request Encounter Details Date Type Department Care Team ([facility] st Contact Info) Description 06/09/2022 Refill [facility] [place] [address] [place] [address] Dominique Agarwal, [address] [place] [address] Other iron deficiency anemias Social History Tobacco [...] anemias documented in this encounter Care Teams Motor Vehicle Inspector Relationship Specialty Start Date End Date Provider, MD Forrest [address] [place] [phone] PCP - General Pediatrics 04/21/22 07/18/23 documented as of this encounter
--- OUTSIDE RECORDS SUMMARY | 2025-09-24 13:09 | XMS_ITS | Encounter Summary ---
Author Organization [facility] Address [address] [place] [address] Phone Care Team Providers Care Electroplater Automatic Name Role Phone Provider, Forrest GUPTA Primary Care Provider [phone] Encounter Details Date Type Department Care Team ([facility] Contact Info) Description 07/07/2017 Conversion Encounter [facility] - [address] [address] Social History Tobacco Use Types Packs/Day Years [...] on filedocumented in this encounter Care Teams Electroplater Automatic Relationship Specialty Start Date End Date Provider, MD Forrest [address] [place] [phone] PCP - General Pediatrics 04/21/22 07/18/23 documented as of this encounter
--- OUTSIDE RECORDS SUMMARY | 2025-09-24 13:09 | XMS_ITS | Encounter Summary ---
Author Organization [facility] Address [address] [place] [address] Phone Care Team Providers Care Registered Radiation Therapist Name Role Phone Provider, Forrest GUPTA Primary Care Provider [phone] Reason for Visit * Reason Comments Med Refill Encounter Details Date Type Department Care Team (Late st Contact Info) Description 05/26/2022 Refill [facility] [place] [address] [place] [address] Yvonne Neff MD [address] [place] [address] Other iron deficiency anemias Social History Tobacco [...] 05/26/2022 9:13 AM EDT PC PCP was [facility]: Pharm requesting refill ferrous sulfate. Pt due for PE. EH documented in this encounter Plan of Treatment Not on file documented as of this encounter Visit Diagnoses Diagnosis Other iron deficiency anemias documented in this encounter Care Teams Registered Radiation Therapist Relationship Specialty Start Date End Date Provider, MD Forrest [address] [place] [phone] PCP - General Pediatrics 04/21/22 07/18/23 documented as of this encounter
--- OUTSIDE RECORDS SUMMARY | 2025-09-24 13:09 | XMS_ITS | Clinical Summary ---
Author Organization [facility] Address [address] [place] [address] Phone Care Team Providers Care Head Filter Press Tender Name Role Phone Unavailable Primary Care Provider Unavailabl e Allergies Active Allergy Reactions Criticality Noted Date Comments Penicillin V Medications IUD'S IU by Intrauterine route. Active fluticasone 50 MCG/ACT nasal sprayIndication s:Middle ear effusion, left Administer 1 spray into each nostril daily. 1 mL 5 5 03/20/20 26 Active Additional Information Patient not taking.Reported on 08/15/2025 cetirizine (ZyrTEC Allergy) 10 MG tabletIndicatio ns:Middle ear effusion, left Take 1 tablet (10 mg total) by mouth daily. 90 tablet Active Additional Information Patient not taking.Reported on 08/15/2025 Active Problems Problem Noted Date Diagnosed Date [...] intolerance to SSRI - In therapy at [facility] with Anjana starting 2018. -Stopped therapy 05/2024. Stable, well controlled with coping skills. Assessment & Plan (06/22/2024 11:03 AM EDT): 06/2024: Recently stopped seeing her therapist d/t therapist left practice. Feels she is in a good place, and anxiety is well controlled with coping skills. Assessment & Plan (02/27/2021 2:38 PM EDT): Has been in therapy with Anjana at [facility] and finding it helpful. Feels her mood has improved a lot over the past year. Assessment & Plan (01/22/2020 12:15 PM EST): Still in therapy with Anjana at [facility] and finding it helpful. Assessment & Plan [...] and rapid weight loss usually fails Making penitentiary healthy changes in how you eat has the best chance for success. Drink more water, less soda, juice and milk. Eat more high fiber and plant based foods - fruits, veges, nuts, seeds, whole grains. Eat less processed foods and eat out less. Encounters Date Type Department Care Team Description 09/17/2025 Telephone [place] [facility] [place] [address] [place] [address] Layne Joe MD Medical Records 08/20/2025 Telephone [place] [facility] [place] [address] [place] [address] Layne Joe MD Letter 08/19/2025 Results Follow-Up [facility] [place] [address] [place] [address] Pretty Diggs NP 08/15/2025 2:15 PM EDT Office Visit [facility] - [address] [address] Pretty Diggs, VANIA Nausea and vomiting, unspecified [...] Depression Brother 2 Chilo Ghosh Depression Father Damianlily Ghosh Bipolar disorder Mother Christy Ghosh Depression [...] 10/28/2021, 10/18/2020, Additional history exists COVID-19 Vaccine (2024-2 6 season) 2025 02/13/2024, 12/09/2021, 04/25/2021, Additional [...] Completed 03/08/2025, 023 Procedures * Due to [place] state law, this organization might not be [...] to Health Maintenance Results * Due to [place] state law, this organization might not be [...] - 08/16/2025 9:05 PM EDT Performed at: [facility] [id number] Marketing Campaign Analyst: Emma Cummins MD, Phone: [phone] us Pretty Diggs NP LAB BLOOD ORDERABLES Final Resul t [facility] [address] [place] [address] * Sedimentation rate (08/15/2025 2:57 PM EDT) Pathologist [facility] ESR (Erythrocyte Sedimentation Rate), Automated 4 0 - 32 mm/hr [facility] Blood 08/15/2025 2:57 PM EDT 08/15/2025 Narrative [facility] - 08/16/2025 7:05 AM EDT Performed at: 01 - [address] [id number] Marketing Campaign Analyst: Emma Cummins MD, Phone: [phone] us Pretty Diggs NP LAB BLOOD ORDERABLES Final Resul t [facility] [address] [place] [address] * (ABNORMAL) CBC and Differential (08/15/2025 2:57 PM EDT) Pathologist [facility] WBC 6.9 3.4 - 10.8 x10E3/uL [facility] [...] - 08/16/2025 6:05 AM EDT Performed at: [address] [place] [id number] Marketing Campaign Analyst: Emma Cummins MD, Phone: [phone] Pretty Diggs NP LAB BLOOD ORDERABLES Final Resul t Performing Organization Address City/[facility] [place] [address] * TSH (08/15/2025 2:57 PM EDT) TSH (Thyroid Stimulating Hormone) 1.440 0.450 - 4.500 uIU/mL [facility] Blood 08/15/2025 2:57 PM EDT 08/15/2025 Narrative [facility] - 08/16/2025 6:05 PM EDT Performed at: [address] [place] [id number] Marketing Campaign Analyst: Emma Cummins MD, Phone: [phone] Pretty Diggs NP LAB BLOOD ORDERABLES Final Resul t Performing Organization Address [facility] [place] [address] * T4, free (08/15/2025 2:57 PM EDT) Free T4 1.42 0.93 - 1.60 ng/dL [facility] Blood 08/15/2025 2:57 PM EDT 08/15/2025 Narrative [facility] - 08/16/2025 6:05 PM EDT Performed at: [address] [place] [id number] Marketing Campaign Analyst: Emma Cummins MD, Phone: [phone] Pretty Morochoak ESL PROFESSOR LAB BLOOD ORDERABLES Final Resul t Performing Organization Address [facility] Co de Phone Number [facility] [address] [place] [address] * IgA (08/15/2025 2:57 PM EDT) IgA 100 87 - 352 mg/dL [facility] Blood 08/15/2025 2:57 PM EDT 08/15/2025 Narrative [facility] - 08/16/2025 5:05 PM EDT Performed at: - [address] [id number] Marketing Campaign Analyst: Emma Cummins MD, Phone: [phone] Pretty Dontae ESL PROFESSOR LAB BLOOD ORDERABLES Final Resul t Performing Organization Address [facility] de Phone Number [facility] [address] [place] [address] * (ABNORMAL) Comprehensive Metabolic Panel (08/15/2025 2:57 PM EDT) Glucose 87 70 - 99 mg/dL [facility] [...] - 08/16/2025 6:05 PM EDT Performed at: - [facility] [id number] Marketing Campaign Analyst: Emma Cummins MD, Phone: [phone] Pretty Diggs NP LAB BLOOD ORDERABLES Final Resul t Performing Organization Address [facility] Co de Phone Number [facility] [address] [place] [address] * POCT , urine (08/15/2025 2:31 PM EDT) Preg Test, Urine, POC Negative Negative, Presumptive negative RELAYMED Urine 08/15/2025 2:31 PM EDT Pretty Diggs NP POINT OF CARE TEST ORDERABLES Fi nal Result Performing Organization Address [facility] Co de Phone Number RELAY[facility] * Chlamydia and Gonorrhoea, Amplified (03/08/2025 10:38 AM EDT) C trach OPAL Negative Negative [facility] N gonorrhoeae OPAL Negative Negative [facility] Urine (Urine) 03/08/2025 10: 38 AM EDT 03/08/2025 Comment:UR Narrative [facility] - 03/11/2025 6:05 PM EDT Performed at: - [facility] [address], [place], [place] [id number] Marketing Campaign Analyst: Jimenez Raygoza MD, Phone: [phone] aJcque De Leon MD LAB MICROBIOLOGY - GENERAL OR DERABLES Final Result Performing Organization Address [facility] Co de Phone Number [facility] [address] [place] [address] * Hepatitis C Antibody w/ reflex to HCV RNA Quant RT PCR (03/08/2025 9:51 AM EDT) HCV Ab Non Reactive Non Reactive [facility] Blood 03/08/2025 9:51 AM EDT 03/08/2025 Narrative [facility] - 03/09/2025 10:05 AM EDT Performed at: - [facility] [place] [address], [address], [place], [place] [id number] Marketing Campaign Analyst: Jimenez Raygoza MD, Phone: [phone] Result [facility] Jacque De Leon MD LAB BLOOD ORDERABLES Final Re sult Performing Organization Address [facility] Co de Phone Number [facility] [address] [place] [address] * RPR (03/08/2025 9:51 AM EDT) RPR, QUANTITATIVE Non Reactive NonRea<1: 1 titer [...] utilized, such as Treponema pallidum (Syphilis) Screening [place] (594580) or Rapid Plasma Reagin (RPR) Test With Reflex to Quantitative RPR and Confirmatory Treponema pallidum Antibodies (192061). Blood (Blood, Venous) 03/08/2025 9:51 AM EDT 03/08/2025 Narrative [facility] - 03/09/2025 9:05 AM EDT Performed at: - [facility] [place] [address], [address], [place] [id number] Marketing Campaign Analyst: Jimenez Raygoza MD, Phone: [phone] us Jacque De Leon MD LAB BLOOD ORDERABLES Final Re sult Performing Organization Address [facility]/ZIP Co de Phone Number [facility] [address] [place] [address] from Last 3 Months or Most Recently Relevant to Health Maintenance Insurance Riiid MD PAO [id number]
== END 2025-09-24 11:45 | disposition home or self-care (01) ==
LOC: HO.HMCHD 10:53
PROVIDERS: PCP Internal Medicine; Visit Provider Internal Medicine
DX: R11.0 Nausea (principal); D50.9 Iron deficiency anemia, unspecified; E55.9 Vitamin D deficiency, unspecified; F33.1 Major depressive disorder, recurrent, moderate; F41.1 Generalized anxiety disorder

== ENCOUNTER → 2025-09-24 10:53 | Outpatient (BNVA) | payer OTHER, SELFPAY | PROVIDERS: PCP Internal Medicine; Visit Provider Internal Medicine | DX: Z76.89 Persons encountering health services in other specified circumstances (principal); R11.0 Nausea; D50.9 Iron deficiency anemia, unspecified; E55.9 Vitamin D deficiency, unspecified; F33.1 Major depressive disorder, recurrent, moderate; F41.1 Generalized anxiety disorder; Z13.31 Encounter for screening for depression; Z13.39 Encounter for screening examination for other mental health and behavioral disorders | CPT/HCPCS: 96127 ==

== ENCOUNTER 2025-09-30 07:42 | Outpatient (REF) | payer OTHER, SELFPAY ==
--- NOTE | ~2025-09-30 | FL_ITS ---
EXAMINATION: XR UPPER GI SERIES WITH SMALL BOWEL CLINICAL INFORMATION: Gastroesophageal reflux disease without esophagitis. Gagging and difficulty swallowing COMPARISON: None available. TECHNIQUE: Routine upper GI contrast study was performed in upright and lying position. Saltine crackers with barium paste was administered in upright view. FINDINGS: Following oral administration of thick barium and effervescent granules is normal propagation bolus from the oral cavity through the pharynx, esophagus into stomach without obstruction, narrowing or stricture. On placing separate patient supine and prone lying the course, caliber and peristalsis of the stomach, duodenal bulb and sweep is normal. There are increased gastric secretions noted likely secondary to gastritis. The mucosal pattern of the stomach and the duodenum is normal. No gastroesophageal reflux or hiatal hernia seen. On oral administration of saltine crackers with barium paste there is normal oral mastication and propagation of solid food from the oral cavity through the pharynx, esophagus into stomach without obstruction or narrowing. Incidental finding of reversal of cervical lordosis. FLUOROSCOPY TIME: 2 minutes 37 seconds DOSE AREA PRODUCT: 1651 uGy-m2 (microgray-meter squared) FL/FL upper GI w air w Ba Swallow IMPRESSION: Unremarkable barium swallow exam. Incidental finding of reversal of cervical lordosis likely spasm. Electronically signed by: Vineet Dacosta MD 09/30/2025 11:24 AM EST
--- OUTSIDE RECORDS SUMMARY | 2025-09-30 07:44 | XMS_ITS | Encounter Summary ---
Author Organization [facility] Address [address] [place] [address] Phone Care Team Providers Care Fraud Examiner Name Role Phone Provider, Forrest GUPTA Primary Care Provider [phone] Encounter Details Date Type Department Care Team (Late st Contact Info) Description 06/06/2017 Documentation [facility] Family Medicine [address] [place] [address] Family Medicine, Physician [address] [place], [place] [address] Social History Tobacco Use Types Packs/Day Years [...] on filedocumented in this encounter Care Teams Fraud Examiner Relationship Specialty Start Date End Date Provider, MD Forrest [address] [place] [phone] PCP - General Pediatrics 04/21/22 07/18/23 documented as of this encounter
--- OUTSIDE RECORDS SUMMARY | 2025-09-30 07:44 | XMS_ITS | Encounter Summary ---
Author Organization [facility] Address [address] [place] [address] Phone Care Team Providers Care Osd Clerk Name Role Phone Provider, Forrest GUPTA Primary Care Provider [phone] Encounter Details Date Type Department Care Team (Late st Contact Info) Description 05/31/2017 Documentation [facility] Family Medicine [address] [place] [address] Family Medicine, Physician [address] [place], [place] [address] Social History Tobacco Use Types Packs/Day Years [...] on filedocumented in this encounter Care Teams Osd Clerk Relationship Specialty Start Date End Date Provider, MD Forrest [address] [place] [phone] PCP - General Pediatrics 04/21/22 07/18/23 documented as of this encounter
--- OUTSIDE RECORDS SUMMARY | 2025-09-30 07:44 | XMS_ITS | Encounter Summary ---
Author Organization [facility] Address [address] [place] [address] Phone Care Team Providers Care Store Host Name Role Phone Provider, Forrest GUPTA Primary Care Provider [phone] Reason for Visit * Reason Comments Med Refill Encounter Details Date Type Department Care Team (Late st Contact Info) Description 05/26/2022 Refill [facility] [address] [place] [address] Yvonne Neff MD [address] [place] [address] Other iron deficiency anemias Social History Tobacco [...] 05/26/2022 9:13 AM EDT PC PCP was ELECTRIC DEICER INSPECTOR: Pharm requesting refill ferrous sulfate. Pt due for PE. EH documented in this encounter Plan of Treatment Not on file documented as of this encounter Visit Diagnoses Diagnosis Other iron deficiency anemias documented in this encounter Care Teams Store Host Relationship Specialty Start Date End Date Provider, MD Forrest [address] [place] [phone] PCP - General Pediatrics 04/21/22 07/18/23 documented as of this encounter
--- OUTSIDE RECORDS SUMMARY | 2025-09-30 07:44 | XMS_ITS | Encounter Summary ---
Author Organization [facility] Address [address] [place] [address] Phone Care Team Providers Care Leach Cell Operator Name Role Phone Provider, Forrest GUPTA Primary Care Provider [phone] Encounter Details Date Type Department Care Team (Late st Contact Info) Description 06/03/2017 Documentation [facility] Family Medicine [address] [place] [address] Family Medicine, Physician [address] [place], [place] [address] Social History Tobacco Use Types Packs/Day Years [...] on filedocumented in this encounter Care Teams Leach Cell Operator Relationship Specialty Start Date End Date Provider, MD Forrest [address] [place] [phone] PCP - General Pediatrics 04/21/22 07/18/23 documented as of this encounter
--- OUTSIDE RECORDS SUMMARY | 2025-09-30 07:44 | XMS_ITS | Encounter Summary ---
Author Organization [facility] Address [address] [place] [address] Phone Care Team Providers Care Loss Claim Clerk Name Role Phone Provider, Forrest GUPTA Primary Care Provider [phone] Reason for Visit * Reason Comments Med Change Request Encounter Details Date Type Department Care Team ([facility] st Contact Info) Description 06/09/2022 Refill [facility] [place] [address] [place] [address] Dominique Agarawl, [address] [place] [address] Other iron deficiency anemias Social History Tobacco [...] anemias documented in this encounter Care Teams Loss Claim Clerk Relationship Specialty Start Date End Date Provider, MD Forrest [address] [place] [phone] PCP - General Pediatrics 04/21/22 07/18/23 documented as of this encounter
--- OUTSIDE RECORDS SUMMARY | 2025-09-30 07:44 | XMS_ITS | Encounter Summary ---
Author Organization [facility] Address [address] [place] [address] Phone Care Team Providers Care Mobility Architect Manager Name Role Phone Provider, Forrest GUPTA Primary Care Provider [phone] Encounter Details Date Type Department Care Team ([facility] Contact Info) Description 07/07/2017 Conversion Encounter [facility] - [address] [address] Social History Tobacco Use Types Packs/Day Years [...] on filedocumented in this encounter Care Teams Mobility Architect Manager Relationship Specialty Start Date End Date Provider, MD Forrest [address] [place] [phone] PCP - General Pediatrics 04/21/22 07/18/23 documented as of this encounter
--- OUTSIDE RECORDS SUMMARY | 2025-09-30 07:45 | XMS_ITS | Clinical Summary ---
Author Organization [facility] Address [address] [place] [address] Phone Care Team Providers Care Wide Area Network Systems Administrator Name Role Phone Unavailable Primary Care Provider [...] intolerance to SSRI - In therapy at [facility] with Anjana starting 2018. -Stopped therapy 05/2024. Stable, well controlled with coping skills. Assessment & Plan (06/22/2024 11:03 AM EDT): 06/2024: Recently stopped seeing her therapist d/t therapist left practice. Feels she is in a good place, and anxiety is well controlled with coping skills. Assessment & Plan (02/27/2021 2:38 PM EDT): Has been in therapy with Anjana at [facility] and finding it helpful. Feels her mood has improved a lot over the past year. Assessment & Plan (01/22/2020 12:15 PM EST): Still in therapy with Anjana at [facility] and finding it helpful. Assessment & Plan [...] and rapid weight loss usually fails Making regional intermodal truck driver healthy changes in how you eat has the best chance for success. Drink more water, less soda, juice and milk. Eat more high fiber and plant based foods - fruits, veges, nuts, seeds, whole grains. Eat less processed foods and eat out less. Encounters Date Type Department Care Team Description 09/17/2025 Telephone [place] [facility] [place] [address] [place] [address] Layne Joe MD Medical Records 08/20/2025 Telephone [place] [facility] [place] [address] [place] [address] Layne Joe MD Letter 08/19/2025 Results Follow-Up [facility] [place] [address] [place] [address] Pretty Diggs NP 08/15/2025 2:15 PM EDT Office Visit [facility] - [address] [address] Pretty Diggs, VANIA Nausea and vomiting, unspecified [...] Vaccine (1 of 2 - Standard) 2021 Influenza Vaccines (#1) 2025 02/13/20, 10/28/2021, 10/18/2020, Additional history exists COVID-19 Vaccine (5 - 2024-2 6 season) 2025 02/13/2024, 12/09/2021, 04/25/2021, Additional history exists DTaP,Tdap,and Td Vaccines (6 - Td or [...] 12/25/2018, 09/22/2017 Meningococcal Vaccine Completed 06/21/2022, 017 Procedures * Due to [place] state law, this organization might not be [...] Encounter for screening examination for chlamydial infection from Last 3 Months or Most Recently Relevant to Health Maintenance Results * Due to [place] state law, this organization might not be [...] - 08/16/2025 9:05 PM EDT Performed at: [facility] [address] [id number] Catering Coordinator: Emma Cummins MD, Phone: [phone] Pretty Diggs LAB BLOOD ORDERABLES Final Resul t Performing Organization Address [facility] de Phone Number [facility] [address] [place] [address] * Sedimentation rate (08/15/2025 2:57 PM EDT) Pathologist [facility] ESR (Erythrocyte Sedimentation Rate), Automated 4 0 - 32 mm/hr [facility] Blood 08/15/2025 2:57 PM EDT 08/15/2025 Narrative [facility] - 08/16/2025 7:05 AM EDT Performed at: [facility] [address] [id number] Catering Coordinator: Emma Cummins MD, Phone: [phone] Pretty Diggs NP LAB BLOOD ORDERABLES Final Resul t Performing Organization Address City/[facility]/ZIP Co de Phone Number [facility] [address] [place] [address] * (ABNORMAL) CBC and Differential (08/15/2025 2:57 PM EDT) WBC 6.9 3.4 - 10.8 x10E3/uL [facility] [...] - 08/16/2025 6:05 AM EDT Performed at: 01 - [facility] [id number] Catering Coordinator: Emma Cummins MD, Phone: [phone] Pretty Diggs NP LAB BLOOD ORDERABLES Final Resul t [facility] [address] [place] [address] * TSH (08/15/2025 2:57 PM EDT) Pathologist [facility] TSH (Thyroid Stimulating Hormone) 1.440 0.450 - 4.500 uIU/mL [facility] Blood 08/15/2025 2:57 PM EDT 08/15/2025 Narrative [facility] - 08/16/2025 6:05 PM EDT Performed at: - [address] [id number] Catering Coordinator: Emma Cummins MD, Phone: [phone] Pretty Diggs NP LAB BLOOD ORDERABLES Final Resul t Performing Organization Address City/[facility] Co de Phone Number [facility] [address] * T4, free (08/15/2025 2:57 PM EDT) [facility] Free T4 1.42 0.93 - 1.60 ng/dL [facility] Blood 08/15/2025 2:57 PM EDT 08/15/2025 Narrative [facility] - 08/16/2025 6:05 PM EDT Performed at: [address] [id number] Catering Coordinator: Emma Cummins MD, Phone: [phone] Pretty Diggs NP LAB BLOOD ORDERABLES Final Resul t Performing Organization Address City/[facility]/ZIP Co de Phone Number [facility] [address] * IgA (08/15/2025 2:57 PM EDT) Pathologist [facility] IgA 100 87 - 352 mg/dL [facility] Blood 08/15/2025 2:57 PM EDT 08/15/2025 Narrative [facility] - 08/16/2025 5:05 PM EDT Performed at: - [address] [id number] Catering Coordinator: Emma Cummins MD, Phone: [phone] Pretty Diggs NP LAB BLOOD ORDERABLES Final Resul t Performing Organization Address [facility] Co de Phone Number [facility] [address] [place] [address] * (ABNORMAL) Comprehensive Metabolic Panel (08/15/2025 2:57 PM EDT) [facility] Glucose 87 70 - 99 mg/dL [facility] [...] 6:05 PM EDT Performed at: 01 - [address] [id number] Catering Coordinator: Emma Cummins MD, Phone: [phone] Pretty Diggs NP LAB BLOOD ORDERABLES Final Resul t Performing Organization Address City/[facility]/ZIP Co de Phone Number [facility] [address] [place] [address] * POCT , urine (08/15/2025 2:31 PM EDT) Preg Test, Urine, POC Negative Negative, Presumptive negative RELAYMED Urine 08/15/2025 2:31 PM EDT us Pretty Diggs NP POINT OF CARE TEST ORDERABLES Fi nal Result Performing Organization Address City/[facility]/ZIP Co de Phone Number REL[facility] * Chlamydia and Gonorrhoea, Amplified (03/08/2025 10:38 AM EDT) C trach OPAL Negative Negative [facility] N gonorrhoeae OPAL Negative Negative [facility] Urine (Urine) 03/08/2025 10: 38 AM EDT 03/08/2025 Comment:UR Narrative [facility] - 03/11/2025 6:05 PM EDT Performed at: - [facility] [address], [address], [place], [place] [id number] Catering Coordinator: Jimenez Raygoza MD, Phone: [phone] Jacque De Leon MD LAB MICROBIOLOGY - GENERAL OR DERABLES Final Result Performing Organization Address City/[facility] Co de Phone Number [facility] [address] [place] [phone] from Last 3 Months or Most Recently Relevant to Health Maintenance Insurance [employer]
--- OUTSIDE RECORDS SUMMARY | 2025-09-30 07:45 | XMS_ITS | Encounter Summary ---
Author Organization [facility] Address [address] [place] [address] Phone Care Team Providers Care Engine Manager Name Role Phone Provider, Forrest GUPTA Primary Care Provider [phone] Encounter Details Date Type Department Care Team (Late st Contact Info) Description 04/09/2018 [facility] [address] [address] Kain Jennings MD [address] [place] [address] Social History Tobacco Use Types Packs/Day Years [...] on filedocumented in this encounter Care Teams Engine Manager Relationship Specialty Start Date End Date Provider, MD Forrest [address] [place] [phone] PCP - General Pediatrics 04/21/22 07/18/23 documented as of this encounter
--- OUTSIDE RECORDS SUMMARY | 2025-09-30 07:45 | XMS_ITS | Encounter Summary ---
Author Organization [facility] Address [address] [place] [address] Phone Care Team Providers Care Portuguese Tutor Name Role Phone Unavailable Primary Care Provider Unavailabl e Encounter Details Date Type Department Care Team (Late st Contact Info) Description 08/19/2025 Results Follow-Up [facility] [place] [address] [place] [address] Pretty Diggs NP [address] [place] [address] Social History Tobacco Use Types Packs/Day Years [...]
== END 2025-09-30 07:43 | disposition home or self-care (01) ==
LOC: HO.XRAY 07:42
PROVIDERS: PCP Internal Medicine; Visit Provider Nurse Practitioner Family
DX: K21.9 Gastro-esophageal reflux disease without esophagitis (principal)
CPT/HCPCS: 74246

== ENCOUNTER → 2025-09-30 07:44 | Outpatient (BNV) | payer OTHER, SELFPAY | PROVIDERS: PCP Internal Medicine; Visit Provider Radiology Diagnostic Radiology | DX: K21.9 Gastro-esophageal reflux disease without esophagitis (principal) | CPT/HCPCS: 74246 ==